=== PATIENT | male | born 1955 | race Caucasian/White ===

== ENCOUNTER 2018-11-09 19:19 | Emergency (ER) | payer BC ==
[~2018-11-09] VITALS: Ht 175.3 cm; Wt 102.5 kg
[2018-11-09 19:29] VITALS: Ht 175.3 cm; Wt 102.5 kg
[2018-11-10 01:36] VITALS: BP 110/72
== END 2018-11-10 01:36 | disposition home or self-care (01) ==
LOC: ED 19:19
DX: J40 Bronchitis, not specified as acute or chronic (principal); J06.9 Acute upper respiratory infection, unspecified
CPT/HCPCS: 87804; J7613